=== PATIENT | female | born 1945 | race American Indian/Alaskan Native ===

== ENCOUNTER 2019-04-09 10:29 | Outpatient (CLI) | payer MEDICARE ==
--- NOTE | 2019-04-09 13:08 | Cat Scan Report ---
CT lumbar spine without contrast INDICATION: Z98.1) HISTORY OF LUMBAR FUSION/M54.35)LOW BACK PAIN. TECHNIQUE: Axial imaging performed through the lumbar spine without the use of contrast. Sagittal a nd coronal reconstructed images were also reviewed. All CT scans at this location are performed usin g CT dose reduction for ALARA by means of automated exposure control. COMPARISON: MRI lumbar spine from 12/23/07 FINDINGS: Alignment: There is grade 1 anterolisthesis of L3 on L4. Bones: There is a posterior construct at L4-S1 which is intact without gross complication. There is multilevel discogenic DJD which is severe above the level the construct at L3/4 where there is anter olisthesis. There is otherwise minimal discogenic DJD or facet arthropathy above L3. Soft tissues: There is mild to moderate canal stenosis at L3/4 where there is anterolisthesis as det larry above. There is also at least mild bilateral foraminal stenosis at this level caused by anterol isthesis and a disc bulge. Otherwise no acute or significant incidental soft tissue abnormality. 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 The posterior construct is intact without complication. Signer Name: Yong Bertrand MD Signed: 04/09/2019 1:04 PM Workstation Name: [id number]
== END 2019-04-09 10:30 | disposition home or self-care (01) ==
LOC: CT 10:29
PROVIDERS: ATTEND Physical Medicine & Rehabilitation
DX: M47.816 Spondylosis without myelopathy or radiculopathy, lumbar region (principal); M43.16 Spondylolisthesis, lumbar region; I10 Essential (primary) hypertension; E66.9 Obesity, unspecified; Z98.1 Arthrodesis status
CPT/HCPCS: 72131